=== PATIENT | male | born 1985 | race Caucasian/White ===

== ENCOUNTER 2016-11-04 10:09 | Emergency (ER) | payer BC ==
[~2016-11-04] VITALS: Ht 185.4 cm; Wt 77.1 kg
[2016-11-04 10:32] VITALS: BP_SYST 125
--- NOTE | 2016-11-04 10:39 | NUR ---
Patient to ER bed 3 to gown for evaluation. Side rails up. Report given to Benjy KING.
--- NOTE | 2016-11-04 11:01 | NUR ---
ER at bedside examining patient.
--- NOTE | 2016-11-04 11:03 | NUR ---
Pt presents to ED c/o generalized malaise after resting. Pt has no acute distress noted. No med hx per report.
[2016-11-04 11:15] VITALS: BP_SYST 125
--- NOTE | 2016-11-04 11:15 | NUR ---
Patient given written and verbal discharge instructions and verbalizes understanding. ER MD discussed with patient the results and treatment provided. Patient in stable condition. ID arm band removed. no Rx given. Patient educated on pain management and to follow up with PMD. Pain Scale 0 Opportunity for questions provided and answered.
== END 2016-11-04 11:15 | disposition home or self-care (01) ==
LOC: SED 10:09
DX: B34.9 Viral infection, unspecified (principal)
CPT/HCPCS: 99281